=== PATIENT | female | born 1950 | race Caucasian/White ===

== ENCOUNTER 2021-06-10 15:20 | Outpatient (CLI) | payer MEDICARE, MEDICAID ==
[~2021-06-10] VITALS: Ht 160 cm; Wt 57.7 kg
[2021-06-10 16:00] VITALS: BP 146/92
[2021-06-10 18:11] LABS: GLUCOMETER DEV NAME(LOC) POC.BV
[2021-06-10 19:00] VITALS: BP 146/92
[2021-06-10 20:42] VITALS: BP 127/77
[2021-06-10 22:01] VITALS: BP 151/91
[2021-06-10] MEDS ORDERED: ACETAMINOPHEN 500 MG TABLET PO ONE (22:15)
[2021-06-11 08:04] VITALS: BP 139/93
[2021-06-11] MEDS ORDERED: SERTRALINE HCL 50 MG TABLET PO SCH (09:00)
== END 2021-06-11 12:05 | disposition home or self-care (01) ==
LOC: CSU 15:20
PROVIDERS: ATTEND Psychiatry & Neurology Psychiatry
DX: F32.A Depression, unspecified (principal); Z20.822 Contact with and (suspected) exposure to COVID-19
CPT/HCPCS: 90792; Z7610